=== PATIENT | male | born 1990 | race African-American/Black ===

== ENCOUNTER 2020-06-03 08:19 | Emergency (ER) | payer OTHER ==
--- NOTE | 2020-06-03 11:05 | XRay Report ---
LUMBAR SPINE 3 VIEWS INDICATION: low back pain after deadlifting COMPARISON: None. FINDINGS: No acute, displaced fracture is seen. Alignment is within normal limits. Disc space height is maintained. No significant degenerative changes. CONCLUSION: 1. No acute findings. Signer Name: Anish Sterling MD Signed: 06/03/2020 11:01 AM Workstation Name: [id number]
[2020-06-03 11:16] VITALS: BP 151/97
--- NOTE | 2020-06-03 11:20 | Emergency Department Report ---
ED Back Pain/Injury HPI - General Chief Complaint: Back Pain/Injury Stated Complaint: BACK PAIN Time Seen by Provider: 06/03/20 10:29 Source: patient Limitations: No Limitations - History of Present Illness Initial Comments: Patient is a 29-year-old male presents emergency room with complaints of lower back pain that began a few days ago. Patient states that he was lifting 225 pounds. He states that he typically lifts this week. He states that he then felt a pulling sensation in his back. He denies falling onto the ground or the weight hitting him. He states that he immediately dropped the weight. He is ambulatory without difficulty. He denies any numbness, weakness, tingling sensation, bowel or bladder incontinence, saddle numbness, fever, nausea, vomiting, diarrhea, urinary symptoms, difficulty in urinating. He denies ever injuring his back in the past. No past medical history. No allergies to medications. - Related Data Previous Rx's Medication Instructions Recorded Last Taken Type Menthol/Camphor [[place] 1 applicatio TP BID #18 oint...g. 06/03/20 Unknown Rx Ointment] Naproxen [EC-Naprosyn] 500 mg PO BID PRN #14 tablet. 06/03/20 Unknown Rx methOCARBAMOL [Robaxin TAB] 500 mg PO BID PRN #14 tab 06/03/20 Unknown Rx Allergies Allergy/AdvReac Type Severity Reaction Status Date / Time No Known Allergies Allergy Verified 06/03/20 08:24 ED Review of Systems ROS: Stated complaint: BACK PAIN Other details as noted in HPI Comment: All other systems reviewed and negative ED Past Medical Hx - Past Medical History Previous Medical History?: No - Surgical History Past Surgical History?: No - Social History Smoking Status: Never Smoker Substance Use Type: None - Medications Home Medications: Home Medications Medication Instructions Recorded Confirmed Last Taken Type Menthol/Camphor [[place] 1 applicatio TP BID #18 oint...g. 06/03/20 Unknown Rx Ointment] Naproxen [EC-Naprosyn] 500 mg PO BID PRN #14 tablet. 06/03/20 Unknown Rx methOCARBAMOL [Robaxin TAB] 500 mg PO BID PRN #14 tab 06/03/20 Unknown Rx ED Physical Exam - General Limitations: No Limitations General appearance: alert, in no apparent distress - Head Head exam: Present: atraumatic, normocephalic - Eye Eye exam: Present: normal appearance - ENT ENT exam: Present: mucous membranes moist - Neck Neck exam: Present: normal inspection, full ROM. Absent: tenderness - Respiratory Respiratory exam: Present: normal lung sounds bilaterally. Absent: respiratory distress, wheezes, rales, rhonchi, stridor, chest wall tenderness, accessory muscle use, decreased breath sounds, prolonged expiratory - Cardiovascular Cardiovascular Exam: Present: regular rate, normal rhythm, normal heart sounds. Absent: systolic murmur, diastolic murmur, rubs, gallop - Back Exam Back exam: Present: normal inspection, full ROM, paraspinal tenderness (bilateral lumbar paraspinal muscular ttp, no midline C-spine, T-spine or L- spine ttp, no step offs, no deformities). Absent: vertebral tenderness - Neurological Exam Neurological exam: Present: alert, oriented X3, CN II-XII intact, normal gait. Absent: motor sensory deficit - Psychiatric Psychiatric exam: Present: normal affect, normal mood - Skin Skin exam: Present: warm, dry, intact ED Course Vital Signs 06/03/20 08:25 Temperature 98.2 F Pulse Rate 73 Respiratory 18 Rate Blood Pressure 151/97 O2 Sat by Pulse 99 Oximetry ED Medical Decision Making - Radiology Data Radiology results: report reviewed Ordering Physician: GIUSEPPE EDGE Date of Service: 06/03/20 Procedure(s): XR spine lumbosacral 2-3V Accession Number(s): [id number] cc: GIUSEPPE EDGE Fluoro Time In Minutes: LUMBAR SPINE 3 VIEWS INDICATION: low back pain after deadlifting COMPARISON: None. FINDINGS: No acute, displaced fracture is seen. Alignment is within normal limits. Disc space height is maintained. No significant degenerative changes. CONCLUSION: 1. No acute findings. Signer Name: Anish Sterling MD Signed: 06/03/2020 11:01 AM Workstation Name: [id number] Transcribed By: SOULEYMANE Dictated By: Anish Sterling MD Electronically Authenticated By: Anish Sterling MD Signed Date/Time: 06/03/20 1101 DD/ 1100 TD/TT: Print - Medical Decision Making Patient is a 29-year-old male presents emergency room with complaints of lower back pain that began a few days ago. Patient states that he was lifting 225 pounds. He states that he typically lifts this week. He states that he then felt a pulling sensation in his back. He denies falling onto the ground or the weight hitting him. He states that he immediately dropped the weight. He is ambulatory without difficulty. He denies any numbness, weakness, tingling sensation, bowel or bladder incontinence, saddle numbness, fever, nausea, vomiting, diarrhea, urinary symptoms, difficulty in urinating. He denies ever injuring his back in the past. No past medical history. No allergies to medications. Vitals are stable. On exam: bilateral lumbar paraspinal muscular ttp, no midline C-spine, T-spine or L-spine ttp, no step offs, no deformities, no focal neuro deficits. X-ray lumbar spine: 1. No acute findings. Patient has no clinical signs of conus medullaris or cauda equina. He has no deficits, no midline tenderness, he is amatory without difficulty. Patient given prescription for naproxen, Robaxin, [place] balm ointment. Advised patient Please use medication as prescribed as needed. Do not drive or operate machinery when taking muscle relaxer Robaxin. May use ice pack, heating pad, rest, Epsom bath. Follow-up with a primary care doctor. Follow-up with inside sales specialist. Return to emergency room for new or worsening symptoms. Critical care attestation.: If time is entered above; I have spent that time in minutes in the direct care of this critically ill patient, excluding procedure time. ED Disposition Clinical Impression: Low back pain Qualifiers: Chronicity: acute Back pain laterality: bilateral Sciatica presence: without sciatica Qualified Code(s): M54.5 - Low back pain Disposition: DC-01 TO HOME OR SELFCARE Is pt being admited?: No Does the pt Need Aspirin: No Condition: Stable Instructions: Lumbosacral Strain Additional Instructions: Please use medication as prescribed as needed. Do not drive or operate machinery when taking muscle relaxer Robaxin. May use ice pack, heating pad, rest, Epsom bath. Follow-up with a primary care doctor. Follow-up with inside sales specialist. Return to emergency room for new or worsening symptoms. Prescriptions: Naproxen [EC-Naprosyn] 500 mg PO BID PRN #14 tablet. PRN Reason: pain methOCARBAMOL [Robaxin TAB] 500 mg PO BID PRN #14 tab PRN Reason: pain Menthol/Camphor [[place] Ointment] 1 applicatio TP BID #18 oint...g. Referrals: PRIMARY CARE, [Primary Care Provider] - 2-3 Days [facility] [Provider Group] - 2-3 Days BONIFACIO RAMEY MD [Staff Physician] - 2-3 Days Time of Disposition: 11:18 Print Language: LATVIAN
== END 2020-06-03 11:30 | disposition home or self-care (01) ==
LOC: ED 08:19
DX: M54.5 Low back pain (principal); Z79.899 Other long term (current) drug therapy
CPT/HCPCS: 72100